=== PATIENT | male | born 1950 | race Caucasian/White ===

== ENCOUNTER → 2022-06-04 | Outpatient (CLI) | payer OTHER ==
[~2022-06-04] MED LIST: GADOTERATE MEGLUMINE 7.5 MMOL/15 ML VIAL IV ONE
== END | disposition home or self-care (01) ==
LOC: SMI 12:31
PROVIDERS: ATTEND Urology Pediatric Urology
DX: M47.816 Spondylosis without myelopathy or radiculopathy, lumbar region (principal); M51.36 Other intervertebral disc degeneration, lumbar region; M48.061 Spinal stenosis, lumbar region without neurogenic claudication; C61 Malignant neoplasm of prostate; N28.1 Cyst of kidney, acquired; M54.50 Low back pain, unspecified
CPT/HCPCS: 72158; A9575

== ENCOUNTER 2022-10-18 09:57 | Outpatient (CLI) | payer OTHER ==
[2022-10-18] MEDS ORDERED: CYSTOGRAFIN 300 ML INFUS..BTL UR ONE (10:25)
== END 2022-10-18 18:18 | disposition home or self-care (01) ==
LOC: SRD 09:57
PROVIDERS: ATTEND Urology Pediatric Urology
DX: R97.20 Elevated prostate specific antigen [PSA] (principal)
CPT/HCPCS: 74430; 51600; Q9958

== ENCOUNTER 2022-10-25 09:24 | Outpatient (CLI) | payer OTHER ==
[2022-10-25] MEDS ORDERED: CYSTOGRAFIN 300 ML INFUS..BTL UR ONE (10:08)
== END 2022-10-25 20:51 | disposition home or self-care (01) ==
LOC: SRD 09:24
PROVIDERS: ATTEND Urology Pediatric Urology
DX: R97.20 Elevated prostate specific antigen [PSA] (principal)
CPT/HCPCS: 74430; 51600; Q9958; 90935

== ENCOUNTER 2022-11-06 10:47 | Outpatient (CLI) | payer OTHER ==
[2022-11-06] MEDS ORDERED: CYSTOGRAFIN 300 ML INFUS..BTL UR ONE (11:43)
== END 2022-11-06 20:15 | disposition home or self-care (01) ==
LOC: SRD 10:47
PROVIDERS: ATTEND Urology Pediatric Urology
DX: C61 Malignant neoplasm of prostate (principal)
CPT/HCPCS: 74430; 51600; Q9958